=== PATIENT | male | born 1955 | race Caucasian/White ===

== ENCOUNTER 2016-10-25 18:24 | Emergency (ER) | payer OTHER ==
[~2016-10-25] VITALS: Ht 157.5 cm; Wt 83.5 kg
[~2016-10-25 18:24] MED LIST: OMEP40CA6 PO
[2016-10-25 18:29] VITALS: Ht 157.5 cm; Wt 83.5 kg
[2016-10-25] MEDS ORDERED: ACETAMINOPHEN 325 MG TAB PO STA (19:34)
[2016-10-25] MEDS ORDERED: ONDANSETRON 4 MG INJ IV STA (19:34)
[2016-10-25] MEDS ORDERED: SODIUM CHLORIDE 0.9% 1L BAG IV* STA (19:34)
[2016-10-25] MEDS ORDERED: HYDROmorphONE 1 MG/ML SYG IV STA (19:34)
--- NOTE | 2016-10-25 19:55 | ERA ---
ER Documentation Chief Complaint Date/Time DATE: 10/25/16 TIME: 19:54 Chief Complaint Right Lower quadrant pain with hx of colon resection August 2016 HPI This is a 61-year-old male who presents emergency room with 3 days of right lower quadrant abdominal pain with associated nonbloody nonbilious emesis and fever. The patient describes pain that is sharp, constant to the right lower quadrant near McBurney's point. He denies any constipation or diarrhea. No chest pain or shortness of breath. He did have a history of colon resection in August secondary to diverticulitis. ROS All systems reviewed and are negative except as per history of present illness. Medications Home Meds Reported Medications Omeprazole* (Omeprazole*) 40 Mg Capsule.dr, 40 MG PO DAILY, CAP 01/04/15 Allergies Allergies: Coded Allergies: No Known Allergy (Unverified , 08/09/15) PMhx/Soc History of Surgery: Yes (colon resection) Anesthesia Reaction: No Hx Neurological Disorder: No Hx Respiratory Disorders: No Hx Cardiac Disorders: No Hx Psychiatric Problems: No Hx Miscellaneous Medical Probl: Yes (diverticulosis) Hx Alcohol Use: Yes (occasionally) Hx Substance Use: No Hx Tobacco Use: No Smoking Status: Never smoker FmHx Family History: No diabetes Physical Exam Vitals Vital Signs Date Time Temp Pulse Resp B/P Pulse Ox O2 Delivery O2 Flow Rate FiO2 10/25/16 21:00 74 21 135/88 96 Room Air 10/25/16 20:00 75 21 128/89 98 Room Air 10/25/16 19:50 72 16 126/88 98 Room Air 10/25/16 18:29 100.3 82 20 140/86 97 Physical Exam General: Well developed, well nourished, uncomfortable Head: Normocephalic, atraumatic. Eyes: Pupils equally reactive, EOM intact ENT: Moist mucous membranes Neck: Supple, no lymphadenopathy Respiratory: Lungs clear bilaterally, no distress Cardiovascular: RRR, no murmurs, rubs, or gallops Abdominal: Soft, focal tenderness of the right lower quadrant at McBurney's point with positive Rovsing's, mild guarding, no pulsatile mass : No hernia, normal testicles bilaterally without swelling or tenderness MSK: No edema, no unilateral swelling, 5/5 strength Neurologic: Alert and oriented, moving all extremities, normal speech, no focal weakness, no cerebellar signs Skin: No rash Psych: Normal mood Result Diagram: 10/25/16200310/25/162003 Results 24 hrs Laboratory Tests Test 10/25/16 20:04 White Blood Count 8.410^3/ul Red Blood Count 4.8510^6/ul Hemoglobin 14.6g/dl Hematocrit 41.7% Mean Corpuscular Volume 86.0fl Mean Corpuscular Hemoglobin 30.1pg Mean Corpuscular Hemoglobin Concent 35.0g/dl Red Cell Distribution Width 13.1% Platelet Count 97947^3/UL Mean Platelet Volume 10.1fl Neutrophils % 60.2% Lymphocytes % 27.5% Monocytes % 10.5% Eosinophils % 1.4% Basophils % 0.2% Nucleated Red Blood Cells % 0.0/100WBC Neutrophils # 5.010^3/ul Lymphocytes # 2.310^3/ul Monocytes # 0.910^3/ul Eosinophils # 0.110^3/ul Basophils # 0.010^3/ul Nucleated Red Blood Cells # 0.010^3/ul Prothrombin Time 13.6Sec Prothrombin Time Ratio 1.1 INR International Normalized Ratio 1.04 Activated Partial Thromboplast Time 27.4Sec Sodium Level 139mmol/L Potassium Level 3.6mmol/L Chloride Level 108mmol/L Carbon Dioxide Level 24mmol/L Anion Gap 11 Blood Urea Nitrogen 14mg/dl Creatinine 0.86mg/dl Glucose Level 99mg/dl Lactic Acid Level 0.8mmol/L Calcium Level 8.9mg/dl Total Bilirubin 0.6mg/dl Direct Bilirubin 0.00mg/dl Indirect Bilirubin 0.6mg/dl Aspartate Amino Transf (AST/SGOT) 39IU/L Alanine Aminotransferase (ALT/SGPT) 66IU/L Alkaline Phosphatase 73IU/L Troponin I < 0.012ng/ml Total Protein 7.5g/dl Albumin 4.0g/dl Globulin 3.50g/dl Albumin/Globulin Ratio 1.14 Current Medications Medications (Trade) Dose Ordered Sig/Kris Route PRN Reason Start Time Stop Time Status Last Admin Dose Admin Sodium Chloride (NS) 2,590 ml BOLUS OVER 2 HOURS STAT IV* 10/25/16 19:34 10/25/16 19:36 DC 10/25/16 20:19 Acetaminophen (Tylenol Tab) 650 mg ONCE STAT PO 10/25/16 19:34 10/25/16 19:36 DC 10/25/16 20:18 Hydromorphone HCl (Dilaudid) 0.5 mg ONCE STAT IV 10/25/16 19:34 10/25/16 19:36 DC 10/25/16 20:19 Ondansetron HCl (Zofran Inj) 4 mg ONCE STAT IV 10/25/16 19:34 10/25/16 19:36 DC 10/25/16 20:18 Procedures/MDM EKG, MONITORS, & DIAGNOSTIC IMAGING: EKG: I reviewed and interpreted a 12-lead EKG. Rhythm: Normal sinus rhythm Ectopy: None Intervals: No abnormalities ST segments: No elevations or depressions T waves: No contiguous inversions Chest x-ray: I reviewed and interpreted a 1 view of the chest Mediastinum: No enlargement Cardiac silhouette: No cardiomegaly Airspace: Clear lung navarro bilaterally without evidence of pneumothorax Bones: No evidence of fracture CT abdomen and pelvis: IMPRESSION: Mild focal stranding anterior to the cecum could suggest epiploic appendagitis. Scattered diverticuli within the descending and sigmoid colon without evidence of diverticulitis. Fatty infiltration of the liver. Mild bibasilar atelectasis. Normal appendix. LAB INTERPRETATION: Normal lactic acid, no leukocytosis MEDICAL DECISION MAKING: The patient has right lower quadrant abdominal pain with fever, nausea and vomiting. Strong concern for acute appendicitis. The patient did have surgery in August but I do not believe this is consistent with complication such as abscess or perforation. Regardless, CT imaging is indicated. Fluid resuscitation will be initiated, blood cultures taken. ER COURSE: The patient's pain is well controlled, repeat abdominal exam is improved. The patient's laboratory testing is reassuring. His CT imaging of the abdomen and pelvis shows evidence of epiploic appendicitis. The appendix is visualized and normal. While there is some mild inflammation in the right lower quadrant I do not believe this is consistent with acute appendicitis. The patient did have a low-grade fever but has no white count and has improvement of fever in the emergency room. He has a repeat abdominal exam that is improved. I discussed with the patient observation in the emergency room observation overnight to return to the emergency room tomorrow for repeat abdominal exam. The patient prefers to return to the emergency room tomorrow for repeat abdominal examination. At this time no indication for antibiotics. Nonsteroidal anti- inflammatories would be appropriate. The patient was advised to return sooner for any worsening pain or fever. He verbalizes understanding. I kept the patient and/or family informed of laboratory and diagnostic imaging results throughout the emergency room course. DISPOSITION PLAN: Discharged from the emergency room but return tomorrow for repeat abdominal examination We discussed follow up with the patient's primary care doctor within 24 to 48 hours as needed. We also discussed return to the emergency room for worsening symptoms or worsening condition. Outpatient referral: [None required] Discharge Medications: Motrin, Watson, Zofran We discussed the use of narcotics including avoidance of operating heavy machinery and driving as well as its addictive properties. Departure Diagnosis: Primary Impression: Right lower quadrant abdominal pain Additional Impression: Epiploic appendagitis Condition: Stable FERNY MENDOZA MD October 25, 2016 19:55
[2016-10-25 20:12] LABS: ADD SCAN DIFF NO
[2016-10-25 20:16] LABS: BASOPHILS % 0.2 % (0.0-2.0); EOSINOPHILS # 0.1 10^3/ul (0.0-0.5); EOSINOPHILS % 1.4 % (0.0-7.0); HEMATOCRIT 41.7 % (42.0-52.0); HEMOGLOBIN 14.6 g/dl (14.0-18.0); LYMPHOCYTES # 2.3 10^3/ul (0.8-2.9); LYMPHOCYTES % 27.5 % (15.0-51.0); MEAN CORPUSCULAR HEMOGLOBIN 30.1 pg (29.0-33.0); MEAN PLATELET VOLUME 10.1 fl (7.4-10.4); MONOCYTE # 0.9 10^3/ul (0.3-0.9); MONOCYTES % 10.5 % (0.0-11.0); NEUTROPHILS % 60.2 % (39.0-77.0); PLATELET COUNT 174 10^3/UL (140-415); RED BLOOD COUNT 4.85 10^6/ul (4.70-6.10); RED CELL DISTRIBUTION WIDTH 13.1 % (11.5-14.5); WHITE BLOOD COUNT 8.4 10^3/ul (4.8-10.8)
[2016-10-25 20:31] LABS: INR 1.04; PARTIAL THROMBOPLASTIN TIME 27.4 Sec (25.0-35.0); PROTIME 13.6 Sec (12.2-14.2); PT RATIO 1.1
[2016-10-25 20:32] LABS: ALANINE AMINOTRANSFERASE 66 IU/L (13-69); ALBUMIN/GLOBULIN RATIO 1.14; ALKALINE PHOSPHATASE 73 IU/L (42-121); ANION GAP 11 (8-16); ASPARTATE AMINO TRANSFERASE 39 IU/L (15-46); BILIRUBIN,INDIRECT 0.6 mg/dl (0-1.1); BILIRUBIN,TOTAL 0.6 mg/dl (0.2-1.3); BLOOD UREA NITROGEN 14 mg/dl (7-20); CALCIUM 8.9 mg/dl (8.4-10.2); CARBON DIOXIDE 24 mmol/L (21-31); CHLORIDE 108 mmol/L (97-110); CREATININE 0.86 mg/dl (0.61-1.24); GLUCOSE 99 mg/dl (70-220); POTASSIUM 3.6 mmol/L (3.5-5.1); SODIUM 139 mmol/L (135-144); TOTAL PROTEIN 7.5 g/dl (6.1-8.1)
[2016-10-25 20:55] LABS: TROPONIN-I < 0.012 ng/ml (0.00-0.12)
--- NOTE | 2016-10-25 21:05 | RADRPT ---
PROCEDURE: XR Chest. CLINICAL INDICATION: Possible sepsis. TECHNIQUE: Single frontal view of the chest. COMPARISON: 08/09/2015 FINDINGS: The cardiomediastinal silhouette is within normal limits. Mild bibasilar atelectasis versus airspace disease. mild pulmonary vascular congestion.. No signs of pleural fluid or pneumothorax are seen. The osseous structures and soft tissues are unremarkable. IMPRESSION: Mild failure. RPTAT: [facility] Physician Toma Date Time Electronically viewed and signed by Neeraj Shields Physician on 10/25/2016 21:04 RS/
--- NOTE | 2016-10-25 21:52 | RADRPT ---
PROCEDURE: CT Abdomen and pelvis without contrast. CLINICAL INDICATION: Abdominal pain. TECHNIQUE: CT scan of the abdomen and pelvis was performed on a multi-detector high-resolution CT scanner. Contiguous axial images were obtained from the lung bases to the ischial tuberosities wit hout intravenous contrast. Coronal and sagittal reformatted images were also obtained. Images were reviewed on the PACS workstation. One or more of the following dose reduction techniques were used: - Automated exposure control. - Adjustment of the mA and/or kV according to patient size. - Use of iterative reconstruction technique. Exam CTD/vol = 19.34 mGy. Total exam DLP = 1093.83 mGy-cm. COMPARISON: None. FINDINGS: Evaluation of the lung bases demonstrates mild bibasilar atelectasis. Abdomen: The liver is normal in size and diffusely low in attenuation consistent with fatty infiltr ation. There is no focal mass or dilatation of the biliary tree. The gallbladder is not distended. The spleen, pancreas and bilateral adrenal glands are within normal limits. Bilateral kidneys are normal in size with no contour deforming mass identified. There is no radiopaque renal or ureteral calculus identified. There is no hydronephrosis or hydroureter. There is no retroperitoneal adeno lacie. The abdominal aorta is of normal caliber. There is mild focal stranding anterior to the cecum. There is no bowel obstruction or free air. A normal appendix is identified. There are few scattered diverticuli within the descending and sigmoi d colon without evidence of diverticulitis. There is no ascites. Pelvis: The bladder is unremarkable. The prostate and seminal vesicles are within normal limits. There is no significant pelvic adenopathy or free fluid. Evaluation of the osseous structures demonstrates no suspicious lytic or blastic lesion. IMPRESSION: Mild focal stranding anterior to the cecum could suggest epiploic appendagitis. Scattered diverticuli within the descending and sigmoid colon without evidence of diverticulitis. Fatty infiltration of the liver. Mild bibasilar atelectasis. Normal appendix. .Sanya Barnes MD, MD Date Time Electronically viewed and signed by .Sanya Barnes MD, MD on 10/25/2016 21:51 .T/
[2016-10-25 22:11] VITALS: TEMP 97.8
[2016-10-25] MEDS ORDERED: ONDA4TAB14 PO (22:14)
[2016-10-25] MEDS ORDERED: HYDR-902 PO (22:14)
[2016-10-25] MEDS ORDERED: IBUP800T25 PO (22:14)
[2016-10-25 23:37] VITALS: BP 139/90; PULSE 67; RESP 17
== END 2016-10-25 23:38 | disposition home or self-care (01) ==
LOC: E/R 18:24
DX: R10.31 Right lower quadrant pain (principal); K63.89 Other specified diseases of intestine; R11.10 Vomiting, unspecified; R40.2142 Coma scale, eyes open, spontaneous, at arrival to emergency department; R40.2252 Coma scale, best verbal response, oriented, at arrival to emergency department; R40.2362 Coma scale, best motor response, obeys commands, at arrival to emergency department
CPT/HCPCS: 36415; 71010; 74176; 80053; 83605; 84484; 85025; 85610; 85730; 87040; 93005; 96374; 96375; J1170; J2405; Z7502; Z7610; J7030

== ENCOUNTER 2016-10-26 10:40 | Emergency (ER) | payer OTHER ==
[~2016-10-26] VITALS: Ht 160 cm; Wt 90.0 kg
[~2016-10-26 10:40] MED LIST changes: +HYDR-902 PO; +IBUP800T25 PO; +ONDA4TAB14 PO
[2016-10-26 10:47] VITALS: Ht 160 cm; Wt 90.0 kg
[2016-10-26] MEDS ORDERED: KETOROLAC 15 MG INJ IV STA (13:33)
[2016-10-26] MEDS ORDERED: SOD CHLORIDE 0.9% 1,000 ML IV STA (13:33)
[2016-10-26] MEDS ORDERED: ONDANSETRON 4 MG INJ IV STA (13:33)
[2016-10-26 14:35] LABS: ADD SCAN DIFF NO
[2016-10-26 14:37] LABS: BASOPHILS % 0.3 % (0.0-2.0); EOSINOPHILS # 0.1 10^3/ul (0.0-0.5); EOSINOPHILS % 1.9 % (0.0-7.0); HEMATOCRIT 41.7 % (42.0-52.0); HEMOGLOBIN 14.3 g/dl (14.0-18.0); LYMPHOCYTES # 2.1 10^3/ul (0.8-2.9); LYMPHOCYTES % 28.1 % (15.0-51.0); MEAN CORPUSCULAR HEMOGLOBIN 30.1 pg (29.0-33.0); MEAN CORPUSCULAR HGB CONC 34.3 g/dl (32.0-37.0); MEAN CORPUSCULAR VOLUME 87.8 fl (82.0-101.0); MEAN PLATELET VOLUME 10.4 fl (7.4-10.4); MONOCYTE # 0.8 10^3/ul (0.3-0.9); MONOCYTES % 10.5 % (0.0-11.0); NEUTROPHIL # 4.4 10^3/ul (1.6-7.5); NEUTROPHILS % 58.8 % (39.0-77.0); PLATELET COUNT 161 10^3/UL (140-415); RED BLOOD COUNT 4.75 10^6/ul (4.70-6.10); RED CELL DISTRIBUTION WIDTH 13.2 % (11.5-14.5); WHITE BLOOD COUNT 7.5 10^3/ul (4.8-10.8)
--- NOTE | 2016-10-26 14:40 | RADRPT ---
PROCEDURE: CT abdomen and pelvis without contrast. CLINICAL INDICATION: Abdominal Pain TECHNIQUE: CT scan of the abdomen and pelvis without contrast was performed and is reconstructed a t 5 mm contiguous axial intervals from the dome of the diaphragm to the inferior pubic rami.. The p atient was scanned without intravenous contrast. Sagittal and coronal reformatted images were obtai monet from the axial source images. The calculated radiation dose measures 1148 mGy centimeters. The C TDI measures 20 mGy. COMPARISON: CT abdomen pelvis October 25, 2016 FINDINGS: The lung bases are clear of any infiltrate or nodule. No effusion is seen. Liver is mildly enlarged measuring 18 cm in length. There is fatty infiltration. No mass or ductal dilatation is present. No gallstones are visualized. No splenic, adrenal or pancreatic abnormal ities present. Kidneys are of normal size and contour. No hydronephrosis, calculus or masses seen. Ureters are o f normal course and caliber with no stone. No bladder mass or stone is present. Prostate and semina l vesicles are normal. There is no aneurysm. No adenopathy is present. No bowel mass or obstruction is present. The appendix is normal. Again noted is phlegmonous infil tration in the right lower quadrant. No discrete collection is seen. No ascites or pneumoperitoneu m is visualized. There has been resection of the mid to distal sigmoid. There are a few scattered di verticula. The osseous structures are intact. IMPRESSION: Normal appendix. Scattered diverticula. Persistent phlegmonous infiltration pericecal fat right lo wer quadrant. No discrete abscess or pneumoperitoneum. Question epiploic appendagitis versus right -sided diverticulitis versus inflammatory bowel disease. No significant change. Fatty liver. .Gerardo Liriano MD, Date Time Electronically viewed and signed by .Gerardo Liriano MD, MD on 10/26/2016 14:40 .A/
[2016-10-26 14:45] LABS: INR 1.04; PROTIME 13.6 Sec (12.2-14.2); PT RATIO 1.1
[2016-10-26 14:49] LABS: ALBUMIN 3.8 g/dl (3.3-4.9); POTASSIUM 3.6 mmol/L (3.5-5.1)
[2016-10-26 14:51] LABS: BILIRUBIN,INDIRECT 0.7 mg/dl (0-1.1); BILIRUBIN,TOTAL 0.7 mg/dl (0.2-1.3); CREATININE 0.89 mg/dl (0.61-1.24)
[2016-10-26 14:52] LABS: ALBUMIN/GLOBULIN RATIO 1.08; CALCIUM 8.5 mg/dl (8.4-10.2); TOTAL PROTEIN 7.3 g/dl (6.1-8.1)
--- NOTE | 2016-10-26 15:06 | ERA ---
ER Documentation Chief Complaint Date/Time DATE: 10/26/16 TIME: 15:05 Chief Complaint here yesterday, c/o same ap feels better, was told to come esteban for further HPI 61-year-old man presents with continued right lower quadrant abdominal pain. He was seen and evaluated yesterday and diagnosed with possible epiploic appendagitis and discharged with Humphreys prescription. He states he went home and did not use his prescription and is here simply for reevaluation. He denies worsening pain, the pain is localized mostly to the right lower quadrant , he has had no dysuria, no chest pain or shortness of breath, no fevers or chills, no vomiting or diarrhea. Patient denies melena or blood per rectum. ROS All systems reviewed and are negative except as per history of present illness. Medications Home Meds Active Scripts Ibuprofen* (Motrin*) 800 Mg Tab, 800 MG PO Q6H Y for PAIN AND OR ELEVATED TEMP, #30 TAB Prov:FERNY MENDOZA MD 10/25/16 Ondansetron (Ondansetron Odt) 4 Mg Tab.rapdis, 4 MG PO Q6H Y for NAUSEA AND/OR VOMITING, #10 TAB Prov:FERNY MENDOZA MD 10/25/16 Hydrocodone/Acetaminophen (Humphreys 10-325 Tablet) 1 Each Tablet, 1 TAB PO Q6H Y for PAIN, #7 TAB Prov:FERNY MENDOZA MD 10/25/16 Reported Medications Omeprazole* (Omeprazole*) 40 Mg Capsule.dr, 40 MG PO DAILY, CAP 01/04/15 Allergies Allergies: Coded Allergies: No Known Allergy (Unverified , 08/09/15) PMhx/Soc History of diverticulitis, obesity, gastritis History of Surgery: Yes (colon resection) Anesthesia Reaction: No Hx Neurological Disorder: No Hx Respiratory Disorders: No Hx Cardiac Disorders: No Hx Psychiatric Problems: No Hx Miscellaneous Medical Probl: Yes (diverticulitis) Hx Alcohol Use: Yes (occasionally) Hx Substance Use: No Hx Tobacco Use: No Smoking Status: Never smoker FmHx Family History: No diabetes Physical Exam Vitals Vital Signs Date Time Temp Pulse Resp B/P Pulse Ox O2 Delivery O2 Flow Rate FiO2 10/26/16 10:47 98.1 74 18 138/78 99 Physical Exam GENERAL: Well-developed, well-nourished, well-hydrated, in no apparent distress , looks nontoxic in appearance HEENT: Moist mucous membranes, pink conjunctiva, no cervical spine tenderness or step-off deformities, no goiter, no jaundice or icterus, extraocular movements intact without pain. No submandibular induration, and no pharyngeal erythema NEURO: Alert and oriented 3, cranial nerves II through XII intact bilaterally, pupils equal round reactive to light, no focal deficits or facial asymmetry, sensation intact distally Strength 5/5 in upper and lower extremities bilaterally CARDIAC: Regular rate and rhythm, no murmurs rubs or gallops LUNGS: Clear bilaterally no wheezing crackles or stridor ABDOMEN: Soft nontender, no guarding, no rigidity, no rebound, no psoas sign no obturator sign. Normoactive bowel sounds SKIN: Warm and dry to touch, no abrasions, contusions, or hematomas, no lacerations, no ecchymosis, no target lesions, and without ulcers EXTREMITIES: No clubbing cyanosis or edema, calves are bilaterally symmetrical, no Homans sign, no popliteal cord sign. Distal pulses equal and bilateral PSYCH: Normal affect without agitation or irritability Result Diagram: 10/26/16 1410 10/26/16 1410 Results 24 hrs Laboratory Tests Test 10/26/16 14:10 White Blood Count 7.510^3/ul Red Blood Count 4.7510^6/ul Hemoglobin 14.3g/dl Hematocrit 41.7% Mean Corpuscular Volume 87.8fl Mean Corpuscular Hemoglobin 30.1pg Mean Corpuscular Hemoglobin Concent 34.3g/dl Red Cell Distribution Width 13.2% Platelet Count 48759^3/UL Mean Platelet Volume 10.4fl Neutrophils % 58.8% Lymphocytes % 28.1% Monocytes % 10.5% Eosinophils % 1.9% Basophils % 0.3% Nucleated Red Blood Cells % 0.0/100WBC Neutrophils # 4.410^3/ul Lymphocytes # 2.110^3/ul Monocytes # 0.810^3/ul Eosinophils # 0.110^3/ul Basophils # 0.010^3/ul Nucleated Red Blood Cells # 0.010^3/ul Prothrombin Time 13.6Sec Prothrombin Time Ratio 1.1 INR International Normalized Ratio 1.04 Sodium Level 142mmol/L Potassium Level 3.6mmol/L Chloride Level 106mmol/L Carbon Dioxide Level 25mmol/L Anion Gap 15 Blood Urea Nitrogen 14mg/dl Creatinine 0.89mg/dl Glucose Level 85mg/dl Lactic Acid Level 1.0mmol/L Calcium Level 8.5mg/dl Total Bilirubin 0.7mg/dl Direct Bilirubin 0.00mg/dl Indirect Bilirubin 0.7mg/dl Aspartate Amino Transf (AST/SGOT) 38IU/L Alanine Aminotransferase (ALT/SGPT) 59IU/L Alkaline Phosphatase 69IU/L Total Protein 7.3g/dl Albumin 3.8g/dl Globulin 3.50g/dl Albumin/Globulin Ratio 1.08 Lipase 235U/L Current Medications Medications (Trade) Dose Ordered Sig/Kris Route PRN Reason Start Time Stop Time Status Last Admin Dose Admin Sodium Chloride (NS) 1,000 ml @ 1,000 mls/hr Q1H STAT IV 10/26/16 13:33 10/26/16 14:32 DC 10/26/16 14:57 Ondansetron HCl (Zofran Inj) 4 mg ONCE STAT IV 10/26/16 13:33 10/26/16 13:34 DC 10/26/16 14:57 Ketorolac Tromethamine (Toradol) 15 mg ONCE STAT IV 10/26/16 13:33 10/26/16 13:34 DC 10/26/16 14:58 Procedures/MDM IV line was established patient was placed on merchandise buyer rhythm strip revealed a sinus rhythm at about 80 bpm with upright P and T waves. I administered 1 L normal saline intravenously, Toradol 15 mg IV, and Zofran 4 mg IV. CBC was normal, electrolytes normal, liver function tests normal, lactic acid low at 1, coagulation profile normal. CT scan of the abdomen and pelvis was repeated today there is right phlegmonous infiltration of the right lower quadrant, although question epiploic appendagitis versus right-sided diverticulitis. Please refer to radiologist dictation for full report although no significant changes were noted on today's CT scan versus yesterday's. I had a long discussion with the patient and his daughter who was at the bedside , recommendation was to use analgesics which were prescribed yesterday although he has not yet filled that prescription and has continued abdominal pain, which makes perfect sense. He does have a mild intra-abdominal inflammatory condition of the right lower quadrant and will benefit from NSAIDs and analgesics. I repeated the patient's abdominal examination after ED workup and management and just prior to discharge. His belly is soft without guarding or rigidity, bowel sounds are normoactive, and vital signs are normal. Differential diagnoses considered, included but not limited to acute coronary syndrome, pulmonary embolism, aortic dissection, abdominal aortic aneurysm, sepsis, stroke, meningitis, encephalitis, pneumonia, appendicitis, cholecystitis , bowel obstruction, pyelonephritis, nephrolithiasis, cystitis, as well as metabolic, hematologic, and electrolyte abnormalities. As well as abscess, cellulitis, fractures, and dislocations. Patient feels much better at this time, and vital signs are normal, symptoms have improved. I did give strict instructions to return to the ED if symptoms continue or worsen, patient will otherwise follow-up with primary care physician. Patient understood instructions and agreed to plan. Disclaimer: Inadvertent spelling or grammatical errors are likely due to EHR/ dictation software use and do not reflect on the overall quality of patient care. Departure Diagnosis: Primary Impression: Abdominal pain Qualified Code: R10.31 - Right lower quadrant abdominal pain Condition: Good SRINATH MUHAMMAD MD October 26, 2016 15:06
[2016-10-26 16:38] VITALS: BP 132/74; PULSE 86; RESP 18; TEMP 98.1
== END 2016-10-26 16:55 | disposition home or self-care (01) ==
LOC: E/R 10:40
DX: R10.31 Right lower quadrant pain (principal)
CPT/HCPCS: 36415; 74176; 80053; 83605; 83690; 85025; 85610; 96374; 96375; J1885; J2405; J7030; Z7502

== ENCOUNTER 2016-11-17 08:09 | Day surgery (SDC) | payer OTHER ==
[~2016-11-17] VITALS: Ht 157.5 cm; Wt 81.2 kg
[2016-11-17 09:08] VITALS: Ht 157.5 cm; Wt 81.2 kg
[2016-11-17 09:41] VITALS: BP 137/87; PULSE 63; RESP 16
[2016-11-17 10:22] VITALS: BP 161/98; PULSE 63; RESP 12
[2016-11-17] MEDS ORDERED: MIDAZOLAM 1 MG/ML 2 ML INJ ONE ×2 (10:27→10:28)
[2016-11-17] MEDS ORDERED: FENTAnyl 50 MCG/ML VIAL ONE (10:28)
--- NOTE | 2016-11-17 10:56 | GILP ---
DATE OF PROCEDURE: NAME OF PROCEDURES: Colonoscopy, biopsy and polypectomy. SURGEON: Elisa Sepulveda MD PREOPERATIVE DIAGNOSIS: Change in bowel habit. POSTOPERATIVE DIAGNOSES 1. Colonoscopy all the way to the cecum. 2. Sigmoid polyp at 30 cm from the anus was removed using the snare and electrocautery. 3. Lipoma of the sigmoid colon was biopsied. 4. Diverticulosis of the colon. 5. Internal hemorrhoids. INDICATION FOR THE PROCEDURE: Mr. Luis Donovan is a 61-year-old male patient who noticed a change in the bowel habit associated with lower abdominal pain. The patient was scheduled for colonoscopy for further evaluation. The procedure and possible complications are well explained to the patient, he understood and consen alban to the procedure. DESCRIPTION OF PROCEDURE: Under the influence of fentanyl and Versed, the colonoscope was carefully introduced in the rectum and under direct vision, it was advanced all the way to the cecum. FINDINGS: The patient was status post sigmoid resection. He was noted to have a sigmoid colon poly p at 30 cm from the anus and it was removed using the snare and electrocautery. He also had a lipom a in the sigmoid colon and biopsies were taken. The patient was noted to have occasional diverticul osis of the colon. He had internal hemorrhoids. He tolerated the procedure very well and there was no complication from the procedure. At the end o f the procedure, he was awake with stable vital signs and he was discharged home to the care of his family. IMPRESSION: Please see postoperative diagnosis. PLAN: 1. Await histopathology report. 2. Linzess 145 mcg p.o. daily a.m. before breakfast for constipation and bloating. 3. Next screening colonoscopy in 5 years. Dictated By: ELISA KABA/EFRAIN Conf#: [id number] DID#: [id number] CC: CYNTHIA HALLMAN MD;*EndCC*
== END 2016-11-17 15:06 | disposition home or self-care (01) ==
LOC: GIL 08:09
PROVIDERS: ATTEND Internal Medicine Gastroenterology
DX: R19.4 Change in bowel habit (principal); D12.5 Benign neoplasm of sigmoid colon; D17.5 Benign lipomatous neoplasm of intra-abdominal organs; K57.30 Diverticulosis of large intestine without perforation or abscess without bleeding; K64.8 Other hemorrhoids
CPT/HCPCS: 45380; 88305; J2250; J3010; Z7610